=== PATIENT | male | born 1955 | race Caucasian/White ===

== ENCOUNTER 2025-10-21 06:33 | Emergency (ER) | payer OTHER, SELFPAY ==
[2025-10-21 06:34] VITALS: BMI 29.8
[2025-10-21 06:53] VITALS: BP 154/87; PULSE 75; RESP 18; TEMP 37.1; O2SAT 95
--- NOTE | 2025-10-21 06:58 | XR_ITS ---
Examination: CT abdomen and pelvis without contrast. Coronal 3-D reconstructions. Sagittal 2-D reconstructions. Date and time of exam: October 21, 2025, 0735 hours INDICATIONS: Abdominal pain and constipation today CTDI: vol (mGy): 12.6 DLP: (mGycm): 802 Technique: Axial images of the abdomen have been obtained, 3 mm slice thickness Intravenous contrast material has not been administered. Low dose protocols were performed. One or more of the following dose reduction techniques were used; automated exposure control, adjustment of the mA and/or KV according to patient size, use of iterative reconstruction technique. Findings: No visualized liver or splenic lesion Absent gallbladder No extrahepatic biliary tract dilatation No pancreatic or adrenal mass Aorta normal size 1 mm lower pole nonobstructing left renal calculus axial image 121 3 mm lower pole right renal calculus image 126 No hydronephrosis or ureteral calculi Normal appendix Aortic calcification no aneurysmal dilatation No bowel obstruction Abundant stool in the rectum with thickening of the rectal wall Contracted urinary bladder with mild urinary bladder wall thickening Prostate AP dimension 3.3 cm cephalad caudad dimension 3.9 cm Transpedicular lumbar stabilization L1-S1 with satisfactory alignment Prominent osteopenia Moderate bilateral hip osteoarthritis IMPRESSION: Bilateral nonobstructing renal calculi, no hydronephrosis or ureteral calculi Normal appendix No bowel obstruction Large amounts of stool in the rectum with thickening of the rectal wall, differential would include proctitis
--- NOTE | 2025-10-21 06:58 | PD.EDRME ---
Rapid Medical Screening Exam RME Arrival date/time: 10/21/25 06:33 70-year-old male with no known medical history presents to the emergency room with a chief complaint of bilateral lower abdominal pain, and constipation x 4 days I have greeted and performed a focused initial assessment of this patient. A comprehensive ED assessment and evaluation of the patient, analysis of all test results, and completion of the medical decision making process will be conducted by additional ED providers. Chief Complaint: General Adult/Misc Complain Time Seen by Provider: 10/21/25 06:38 Vital signs: Vital Signs Temperature 98.7 F 10/21/25 06:53 Pulse Rate 75 10/21/25 06:53 Respiratory Rate 18 10/21/25 06:53 Blood Pressure 154/87 H 10/21/25 06:53 Pulse Oximetry (%) 95 10/21/25 06:53 Oxygen Delivery Method Room Air 10/21/25 06:53 Vital signs reviewed by provider: Yes Exam: Bilateral lower abdominal pain with palpation Clear bilateral lung sounds Clinical Impression: Bowel obstruction/constipation/abdominal pain
[2025-10-21] MEDS: MAGNESIUM CITRATE 300 ML BTL PO ×3 (07:28→12:01)
[2025-10-21 07:49] LABS: Alanine Aminotransferase < 7 U/L (10-49); Albumin, Serum 4.6 gm/dL (3.4-4.8); Albumin/Globulin Ratio 2.0 (1.2-2.2); Alkaline Phosphatase 93 U/L (46-116); Anion Gap 9 (7-16); Aspartate Amino Transferase 11 U/L (0-34); BUN/Creatinine Ratio 9 Ratio (12-20); Bilirubin,Total 1.8 mg/dL (0.3-1.2); Blood Urea Nitrogen 9 mg/dL (9-23); Calcium 9.4 mg/dL (8.3-10.6); Calcium (Corrected) 9.4 mg/dL (8.5-10.1); Carbon Dioxide 29.9 mMol/L (20.0-31.0); Chloride 101 mMol/L (98-107); Creatinine (Component) 1.0 mg/dL (0.6-1.3); Estimated Creatinine Clearance 82.9 mL/min (>60); Globulin 2.3 gm/dL (2.3-3.5); Glucose 117 mg/dL (74-106); Lipase 27 U/L (12-53); Osmolality,Calculated 279 (275-295); Potassium 4.0 mMol/L (3.4-5.1); Sodium 140 mMol/L (136-145); Total Protein 6.9 gm/dL (5.7-8.2); eGFR > 60 See Note
[2025-10-21 07:55] VITALS: BP 148/94; PULSE 73; RESP 18; TEMP 37.2; O2SAT 100
--- NOTE | 2025-10-21 07:56 | EKG_ITS ---
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[id number] Requested By: Liborio Boland Order Number: [id number] Reading MD: Liborio Boland Measurements Intervals [place] Rate: 60 P: 79 TN: 206 QRS: -67 QRSD: 161 T: -2 QT: 477 QTc: 479 Interpretive Statements SINUS RHYTHM RIGHT BUNDLE BRANCH BLOCK [120+ ms QRS DURATION, UPRIGHT V1, 40+ ms S IN I/aVL/V4/V5/V6] LEFT ANTERIOR FASCICULAR BLOCK [QRS AXIS <= -45, QR IN I, RS IN II] VOLTAGE CRITERIA FOR LVH [MEETS CRITERIA IN ONE OF: R(aVL), S(V1), R(V5), R(V5/V6)+S(V1)] POSSIBLE SEPTAL MYOCARDIAL INFARCTION , PROBABLY OLD [30 ms Q WAVE IN V1/V2] No previous ECG available for comparison /store/S0/[id number]/ecg/[id number].pdf
--- NOTE | 2025-10-21 08:06 | PC.NURSE ---
Pt came in to the ED for c/o constipation for 24hours. He stated last BM was hard and was in small ball shaped. Currently pt is alert and oriented, c/o pain to abdomen.
[2025-10-21 08:09] LABS: Basophils # (Auto) 0.1 Thou/mm3 (0.0-0.2); Basophils % (Auto) 1 % (0-2.5); Eosinophils # (Auto) 0.2 Thou/mm3 (0.0-0.5); Eosinophils % (Auto) 2 % (0-10); Hematocrit 46.2 % (41.0-53.0); Hemoglobin 15.6 g/dL (13.5-16.0); Immature Granulocytes Auto 0.11 Thou/mm3 (0.00-0.00); Lymphocytes # (Auto) 0.9 Thou/mm3 (1.0-4.8); Lymphocytes % (Auto) 10 % (10-50); Mean Corpuscular HGB Conc 33.8 g/dl (31.0-37.0); Mean Corpuscular Hemoglobin 31.6 pg (25.0-35.0); Mean Corpuscular Volume 94 fL (80-100); Monocytes # (Auto) 0.6 Thou/mm3 (0.0-0.8); Monocytes % (Auto) 7 % (0-12); Neutrophils # (Auto) 7.5 Thou/mm3 (1.8-7.7); Neutrophils % (Auto) 80 % (37-80); Nucleated Red Blood Cell # 0.00 Thou/mm3 (0.00-0.00); Nucleated Red Blood Cell % 0 /100 WBC (0); Platelet Count 300 Thou/mm3 (140-440); RDW Standard Deviation 42.0 fL (35.1-43.9); Red Blood Count 4.94 Miln/mm3 (4.50-5.90); White Blood Count 9.3 Thou/mm3 (3.8-10.6)
[2025-10-21 09:36] LABS: Collection Type, Urine Clean Catch; Squamous Epithelial Cell,Urine 0 /hpf (0-5)
[2025-10-21 09:40] LABS: Bilirubin,Urine Negative (Negative); Blood,Urine Negative (Negative); Clarity,Urine Clear (Clear/Hazy); Color,Urine Yellow (Lt Yel-Yel); Glucose, Urine Negative (Negative); Ketones,Urine Negative (Negative); Leukocyte Esterase,Urine Negative (Negative); Nitrite,Urine Negative (Negative); PH,Urine 6.5 (5.0-7.0); Protein,Urine Negative (Neg - Trace); RBC,Urine 2 /hpf (0-3); Specific Gravity,Urine 1.022 (1.001-1.035); Urobilinogen,Urine 2.0 mg/dL (0.0-1.0); WBC,Urine 2 /hpf (0-5)
[2025-10-21] MEDS: ONDANSETRON INJ 2 MG/ML INJ 2 ML 4 MG IVP (10:03)
[2025-10-21] MEDS: MORPHINE SULF INJ 4 MG/ML VIAL IVP (10:03)
[2025-10-21] MEDS: SODIUM CHLORIDE 0.9% 1000 ML 1,000 ML 999 ML IV (10:04)
[2025-10-21 10:15] VITALS: BP 147/76; PULSE 69; RESP 17; TEMP 37.1; O2SAT 95
--- NOTE | 2025-10-21 11:23 | PD.EDADULT ---
ED General RME/HPI General Chief complaint: General Adult/Misc Complain Stated complaint: CONSTIPATED Time Seen by Provider: 10/21/25 06:38 Arrival date/time: 10/21/25 06:33 Limitations: no limitations RME / HPI RME / HPI narrative: 10/21/25 06:33 70-year-old male with no known medical history presents to the emergency room with a chief complaint of bilateral lower abdominal pain, and constipation x 4 days I have greeted and performed a focused initial assessment of this patient. A comprehensive ED assessment and evaluation of the patient, analysis of all test results, and completion of the medical decision making process will be conducted by additional ED providers. DR. BOWDEN MAIN ED EVALUATION: 70 year old male with history of prior back surgeries otherwise no other chronic medical hx reported presents to the ED for evaluation of constipation and lower abdominal pain beginning yesterday. Pain described as aching in sensation that is located most across lower abdomen, rating 6/10 in severity. Reportedly has taken Naproxen for the pain with no change, prompting ED visit. No other associated symptoms reported. Denies fevers, chills, sweats, nausea, vomiting, or urinary symptoms. Exam: Bilateral lower abdominal pain with palpation Clear bilateral lung sounds Impression: Bowel obstruction/constipation/abdominal pain Related Data Previous Rx's ?Medication ?Instructions ?Recorded peg 3350-electrolytes 236 240 ml PO Q10M #4,000 mL 09/08/21 gram-22.74 gram-6.74 gram-5.86 gram solution (Golytely) lactulose 10 gram/15 mL oral 20 g (30 mL) PO TID PRN 10/21/25 solution constipation #3,785 mL magnesium hydroxide 600 mg 600 mg PO TID PRN constipation #60 10/21/25 chewable tablet (Dulcolax tabs (magnesium hydroxide)) Allergies Allergy/AdvReac Type Severity Reaction Status Date / Time Penicillins Allergy Unknown RASH Verified 10/21/25 06:33 Review of Systems Review of Systems Systems Reviewed: All systems reviewed, normal except as documented Past Medical History Past Medical History CARDIAC: Negative Congestive Heart Failure RESPIRATORY: Negative Chronic Obstructive Pulmonary Disease (COPD) GENITOURINARY: Negative Renal Disease ENDOCRINE: Negative Diabetes Mellitus Type 1 or Diabetes Mellitus Type 2 Social History SMOKING STATUS: Current some day smoker ED Exam General Limitations: Present no limitations General appearance: Present alert and in no apparent distress Head Head exam: Present atraumatic, normocephalic and normal inspection Eye Eye exam: Present normal appearance, PERRL and EOMI ENT ENT exam: Present normal exam, normal oropharynx and mucous membranes moist Neck Neck exam: Present normal inspection, full ROM and trachea midline Chest Chest inspection: Present normal inspection and symmetric chest wall rise Respiratory Respiratory exam: Present normal lung sounds bilaterally Cardiovascular Cardiovascular exam: Present regular rate, normal rhythm and normal heart sounds Abdominal Exam Abdominal exam: Present soft, tenderness (minimal tenderness to the left lower abdomen) and normal bowel sounds; Absent distention, guarding, rebound or rigidity Extremities Exam Extremities exam: Present normal inspection Neurological Exam Neurological exam: Present alert, oriented X3 and CN II-XII intact Psychiatric Psychiatric exam: Present normal affect and normal mood Skin Skin exam: Present warm, dry, intact and normal color Course Quality Measures none Orders Category Date Time Status 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 10/21/25 07:56 Completed Continuous Pulse Oximetry NOW Care 10/21/25 07:56 Completed EKG (ED ONLY) *Do not use* NOW Care 10/21/25 07:56 Completed Insert IV NOW Care 10/21/25 07:[address] abdomen pelvis wo con Stat Exams 10/21/25 06:58 Completed EKG (ED Only) Stat Exams 10/21/25 07:56 Draft CBC Stat Lab 10/21/25 07:10 Completed CMP [Comprehensive Metabolic Panel] Stat Lab 10/21/25 07:10 Completed Lipase Stat Lab 10/21/25 07:10 Completed UA [Urinalysis] Stat Lab 10/21/25 09:21 Completed Urine Culture Stat Lab 10/21/25 06:58 Ordered Magnesium Citrate Liqd [Citrate of Magnesia Liqd] Med 10/21/25 06:58 Discontinued 300 ml PO X1 ONE Magnesium Citrate Liqd [Citrate of Magnesia Liqd] Med 10/21/25 08:32 Discontinued 300 ml PO X1 ONE Magnesium Citrate Liqd [Citrate of Magnesia Liqd] Med 10/21/25 11:07 Discontinued 300 ml PO X1 ONE Morphine* Inj Med 10/21/25 08:50 Discontinued 4 mg IVP X1 ONE Ondansetron Inj [Zofran Inj] Med 10/21/25 08:50 Discontinued 4 mg IVP X1 ONE Sodium Chloride 0.9% 1000 ml [Ns] 1,000 ml Med 10/21/25 07:56 Discontinued IV 999 mls/hr Vital Signs Vital signs: Vital Signs Temperature 98.7 F 10/21/25 06:53 Pulse Rate 75 10/21/25 06:53 Respiratory Rate 18 10/21/25 06:53 Blood Pressure 154/87 H 10/21/25 06:53 Pulse Oximetry (%) 95 10/21/25 06:53 Oxygen Delivery Method Room Air 10/21/25 06:53 Pulse ox is 95% on room air which is adequate. Discharge Plan Plan Patient Disposition: HOME (Self Care) Patient condition on transfer: Stable Prescriptions/Referrals Prescriptions/Med Rec: New lactulose 10 gram/15 mL solution 20 g PO TID MDD 90 ml PRN (Reason: constipation) Qty: 3785 1RF Dulcolax (magnesium hydroxide) 600 mg tablet,chewable 600 mg PO TID MDD 3 PRN (Reason: constipation) Qty: 60 5RF No Action peg 3350-electrolytes [Golytely] 236-22.74-6.74 -5.86 gram recon soln 240 ml PO Q10M Qty: 4000 0RF Rx Instructions: until fecal effluent is clear Referrals: Anya Milligan MD [Primary Care Provider] - In 1 week Problem List Clinical Impression: Parkinson disease, Constipation Patient/Caregiver Discharge Instructions Discharge Activity: activity as tolerated Education Materials: Understanding Parkinson Disease, Parkinson Disease Manage, ED Constipation (Adult) Additional Instructions: Take the medications as prescribed. Follow-up with your doctor in 2 to 3 days. Consider referral to gastroenterology. Print Language: Hebrew Stand Alone Forms: Ann Award Info., Patient Portal Info Letter MDM Narrative MDM hospital course (for use when minimal MDM required): Elina Loco am scribing for and in the presence of Dr. Bowden. Patient remains clinically stable throughout the emergency department visit. We reviewed all the results, analysis, and treatment plans. Patient is amenable to discharge. Strict return precautions were outlined. Clinical Information Provided by: patient Medical Records reviewed [facility] Meds/Rx considered, not ordered None Labs/Rad/Tests considered, not ordered None Chronic Illness/Social Conditions which may negatively complicate care or outcome(s)-explain: None or not applicable EKG Interpretation EKG #1: EKG Interpretation: EKG @ 08:07 am, interpreted by me, normal sinus rhythm, rate 60, right bundle branch block, left anterior fascicular block, no STEMI. Labs Labs: interpreted by me Lab(s) Interpretation(s): CBC within normal limits Total bilirubin is minimally elevated at 1.8, patient has no right upper abdominal pain Urinalysis is negative for infection Imaging Imaging Interpretation(s): Ordering Physician: Abhishek Dumas Date of Service: 10/21/25 Procedure(s): CT abdomen pelvis wo con Accession Number(s): [id number] cc: Anya Milligan MD; Abhishek Dumas; Sha Puga MD~ Examination: CT abdomen and pelvis without contrast. Coronal 3-D reconstructions. Sagittal 2-D reconstructions. Date and time of exam: October 21, 2025, 0735 hours INDICATIONS: Abdominal pain and constipation today CTDI: vol (mGy): 12.6 DLP: (mGycm): 802 Technique: Axial images of the abdomen have been obtained, 3 mm slice thickness Intravenous contrast material has not been administered. Low dose protocols were performed. One or more of the following dose reduction techniques were used; automated exposure control, adjustment of the mA and/or KV according to patient size, use of iterative reconstruction technique. Findings: No visualized liver or splenic lesion Absent gallbladder No extrahepatic biliary tract dilatation No pancreatic or adrenal mass Aorta normal size 1 mm lower pole nonobstructing left renal calculus axial image 121 3 mm lower pole right renal calculus image 126 No hydronephrosis or ureteral calculi Normal appendix Aortic calcification no aneurysmal dilatation No bowel obstruction Abundant stool in the rectum with thickening of the rectal wall Contracted urinary bladder with mild urinary bladder wall thickening Prostate AP dimension 3.3 cm cephalad caudad dimension 3.9 cm Transpedicular lumbar stabilization L1-S1 with satisfactory alignment Prominent osteopenia Moderate bilateral hip osteoarthritis IMPRESSION: Bilateral nonobstructing renal calculi, no hydronephrosis or ureteral calculi Normal appendix No bowel obstruction Large amounts of stool in the rectum with thickening of the rectal wall, differential would include proctitis Dictated By: Sha Puga MD Signed By: <Electronically signed by Sha Puga MD in OV> 10/21/25 0817 Medication Administration(s) Medication Administration History Discontinued Medications Sodium Chloride (Ns) 1,000 mls @ 999 mls/hr IV .Q1H1M ONE Stop: 10/21/25 08:56 Last Admin: 10/21/25 10:04 Dose: 999 mls/hr Documented By: TERRENCE Magnesium Citrate (Magnesium Citrate 300 Ml Btl) 300 ml PO X1 ONE Stop: 10/21/25 06:59 Last Admin: 10/21/25 07:28 Dose: 300 ml Documented By: KRISTEN Magnesium Citrate (Magnesium Citrate 300 Ml Btl) 300 ml PO X1 ONE Stop: 10/21/25 08:33 Last Admin: 10/21/25 10:03 Dose: 300 ml Documented By: TERRENCE Magnesium Citrate (Magnesium Citrate 300 Ml Btl) 300 ml PO X1 ONE Stop: 10/21/25 11:08 Last Admin: 10/21/25 12:01 Dose: 300 ml Documented By: TERRENCE Morphine Sulfate (Morphine Sulf Inj 4 Mg/Ml Vial) 4 mg IVP X1 ONE Stop: 10/21/25 08:51 Last Admin: 10/21/25 10:03 Dose: 4 mg Documented By: TERRENCE Ondansetron HCl (Ondansetron Inj 2 Mg/Ml Inj 2 Ml) 4 mg IVP X1 ONE; Protocol Stop: 10/21/25 08:51 Last Admin: 10/21/25 10:03 Dose: 4 mg Documented By: TERRENCE See above Diagnosis Diagnoses ruled out and/or further discussions: Parkinson disease Constipation
[2025-10-21 12:24] VITALS: BP 150/83; PULSE 68; RESP 20; TEMP 36.7; O2SAT 98
== END 2025-10-21 12:37 | disposition home or self-care (01) ==
PROVIDERS: Nurse Practitioner Family; Emergency Provider Family Medicine; PCP Student in an Organized Health Care Education/Training Program
DX: K59.00 Constipation, unspecified (principal); N20.0 Calculus of kidney; G20.A1 Parkinson's disease without dyskinesia, without mention of fluctuations; K62.89 Other specified diseases of anus and rectum; I45.10 Unspecified right bundle-branch block; I44.4 Left anterior fascicular block
CPT/HCPCS: 36415; 74176; 80053; 81001; 83690; 85025; 87086; 93005; 96374; 96375; 99284; J2270; J2405; J7030; A9270